=== PATIENT | female | born 2005 ===

== ENCOUNTER 2024-05-21 09:11 | Outpatient (OUT) | payer BC, SELFPAY ==
--- NOTE | 2024-05-21 09:16 | US_ITS ---
[address] [address] Patient Name: BENEDICTO BARRERA MRN: [id number] date: 2005 Sex: F Assigned Patient Location: [facility] Current Patient Location: [facility] Accession/Order Number: [id number] Exam Date: 05/21/2024 09:17 Report Date: 05/21/2024 10:22 At the request of: KIRA SOSA Procedure: US OB transvaginal EXAMINATION: US OB transvaginal HISTORY: MISSED MENSES COMPARISON: No relevant comparison available. FINDINGS: Chance intrauterine gestation Gestational sac: 3.33 cm, 8 weeks 3 days CRL: 2.23 cm, 9 weeks 0 days Yolk sac: 4.5 mm Heart rate: 67 bpm The uterus is normal, retroverted, retroflexed The ovaries are normal in appearance. The cervix is closed measuring 3.7 cm in length Clinical age: 9 weeks 4 days Clinical CESAR: 12/20/2024 Ultrasound age: 9 weeks 0 days Ultrasound CESAR: 12/24/2024 US/US OB transvaginal IMPRESSION: Viable chance intrauterine gestation measuring 9 weeks 0 days Electronically authenticated by: SHANTANU SCHULTZ Date: 05/21/2024 10:22
== END 2024-05-21 09:12 | disposition home or self-care (01) ==
LOC: NOMS 09:13
PROVIDERS: Visit Provider Obstetrics & Gynecology
DX: Z34.91 Encounter for supervision of normal pregnancy, unspecified, first trimester (principal); Z3A.09 9 weeks gestation of pregnancy; N92.6 Irregular menstruation, unspecified
CPT/HCPCS: 76817